=== PATIENT | female | born 1970 | race Two or more races ===

== ENCOUNTER → 2016-08-27 | Outpatient (CLI) | payer BC | LOC: EDBD → BRMIMAGING 15:20 | PROVIDERS: ATTEND Family Medicine | DX: Z12.31 Encounter for screening mammogram for malignant neoplasm of breast (principal) | CPT/HCPCS: G0202 ==

== ENCOUNTER → 2016-09-08 | Outpatient (CLI) | payer BC, OTHER | LOC: BRMIMAGING 09:44 | PROVIDERS: ATTEND Family Medicine | DX: Z12.39 Encounter for other screening for malignant neoplasm of breast (principal); R92.2 Inconclusive mammogram; N60.01 Solitary cyst of right breast | CPT/HCPCS: 76641-PO; G0204 ==

== ENCOUNTER → 2017-04-21 | Outpatient (CLI) | payer BC | LOC: BRMIMAGING 08:57 | PROVIDERS: ATTEND Family Medicine | DX: R92.8 Other abnormal and inconclusive findings on diagnostic imaging of breast (principal) ==